=== PATIENT | female | born 1975 | race Caucasian/White ===

== ENCOUNTER 2016-09-11 12:04 | Emergency (ER) | payer OTHER ==
[~2016-09-11] VITALS: Ht 154.9 cm; Wt 68.0 kg
[~2016-09-11 12:04] MED LIST: ALPR2TAB1 PO; CARI350T PO; DOCU-67 PO; GABA300C PO; HYDR-4452 PO; IBUP-974 PO; OMEP40EC1 PO
[2016-09-11 12:11] VITALS: BP 121/77
--- NOTE | 2016-09-11 12:23 | NUR ---
pt to bed 3
--- NOTE | 2016-09-11 12:25 | NUR ---
PATIENT PRESENTS TO ED WITH C/O N/V/D STARTING AT 0300 TODAY WITH BODY ACHES; SKIN IS PINK/WARM/DRY; AAOX4 WITH EVEN AND STEADY GAIT; LUNGS CLEAR BL; HR EVEN AND REGULAR; PT DENIES ANY FEVER, CP, SOB, OR COUGH AT THIS TIME; PATIENT STATES PAIN OF 8/10 AT THIS TIME; VSS; PATIENT POSITIONED FOR COMFORT; HOB ELEVATED; BEDRAILS UP X2; BED DOWN. ER MD MADE AWARE OF PT STATUS.
--- NOTE | 2016-09-11 12:36 | NUR ---
Dr. Spence evaluating patient at bedside.
[2016-09-11] MEDS: KETOROLAC 60 MG/2 ML VIAL IM ONE (12:47)
[2016-09-11 13:01] VITALS: BP 106/69
--- NOTE | 2016-09-11 13:01 | NUR ---
Patient discharged with v/s stable. Written and verbal after care instructions given and explained. Patient alert, oriented and verbalized understanding of instructions. Ambulatory with steady gait. All questions addressed prior to discharge. ID band removed. Patient advised to follow up with PMD. Rx of IMODIUM, ZOFRAN, MOTRIN given. Patient educated on indication of medication including possible reaction and side effects. Opportunity to ask questions provided and answered.
== END 2016-09-11 13:01 | disposition home or self-care (01) ==
LOC: MED 12:04
DX: R11.2 Nausea with vomiting, unspecified (principal); R10.9 Unspecified abdominal pain; R19.7 Diarrhea, unspecified; K21.9 Gastro-esophageal reflux disease without esophagitis
CPT/HCPCS: 81002; 81025; 96372; 99283; J1885

== ENCOUNTER 2016-10-05 08:58 | Emergency (ER) | payer OTHER ==
[~2016-10-05] VITALS: Ht 160 cm; Wt 71.8 kg
[~2016-10-05 08:58] MED LIST changes: -ALPR2TAB1 PO; -CARI350T PO; +COLACE100 M1 PO; -DOCU-67 PO; -GABA300C PO; -HYDR-4452 PO; -IBUP-974 PO; +MOTRIN800 MG PO; +NEURONTIN300 MG PO; +NORCO 10/325 MG1 TAB PO; -OMEP40EC1 PO; +PHENERGAN25 M3 PO; +PRILOSEC40 MG PO; +SOMA350 MG PO; +XANAX2 MG PO
[2016-10-05 09:43] VITALS: BP 116/75
--- NOTE | 2016-10-05 10:04 | NUR ---
Patient back from XRAY.
--- NOTE | 2016-10-05 10:29 | NUR ---
Dr. Fontana evaluating patient.
--- NOTE | 2016-10-05 10:29 | NUR ---
Patient to OF2.
--- NOTE | 2016-10-05 10:58 | NUR ---
NO PAIN MED. GIVEN BY ERMD. PATIENT IN NO DISTRESS.PAIN NOT BAD PER PATIENT
--- NOTE | 2016-10-05 10:59 | NUR ---
LT. KNEE XR RESULTS REVIEWED BY DORIAN
[2016-10-05 11:00] VITALS: BP 110/78
== END 2016-10-05 11:00 | disposition home or self-care (01) ==
LOC: MED 08:58
DX: M25.562 Pain in left knee (principal); J45.909 Unspecified asthma, uncomplicated; K21.9 Gastro-esophageal reflux disease without esophagitis
CPT/HCPCS: 73562; 99284; Q0092

== ENCOUNTER 2016-11-16 09:18 | Emergency (ER) | payer OTHER ==
[~2016-11-16] VITALS: Ht 160 cm; Wt 71.3 kg
[~2016-11-16 09:18] MED LIST changes: +ALPR2TAB1 PO; +CARI350T PO; -COLACE100 M1 PO; +DOCU-67 PO; +GABA300C PO; +HYDR-4452 PO; +IBUP-974 PO; -MOTRIN800 MG PO; -NEURONTIN300 MG PO; -NORCO 10/325 MG1 TAB PO; +OMEP40EC1 PO; -PHENERGAN25 M3 PO; -PRILOSEC40 MG PO; -SOMA350 MG PO; -XANAX2 MG PO
[2016-11-16 09:28] VITALS: BP 126/81
--- NOTE | 2016-11-16 10:03 | NUR ---
Patient ambulated to bed 7. RN evaluating patient at bedside.
--- NOTE | 2016-11-16 10:08 | NUR ---
PATIENT PRESENTS TO ED WITH C/O NECK PAIN RADIATING BILAT UPPER EXTREMITIES , LEFT KNEE PAIN, LOWER BACK PAIN, AND HEADACHE EXACERBATION;HX OF HERNIATED DISC c3-c5, l4-5, s1;RX OF NORCO, NEUROTIN, ROBAXIN, XANAX,. DENIES N/V/D; SKIN IS PINK/WARM/DRY; AAOX4 WITH EVEN AND STEADY GAIT; LUNGS CLEAR BL; HR EVEN AND REGULAR; PT DENIES ANY FEVER, CP, SOB, OR COUGH AT THIS TIME; PATIENT STATES PAIN OF 8/10 AT THIS TIME; PATIENT POSITIONED FOR COMFORT; HOB ELEVATED; BEDRAILS UP X2; BED DOWN.
[2016-11-16] MEDS ORDERED: HYDROmorphone 1 MG/ML AMP IM ONE (10:10)
[2016-11-16] MEDS ORDERED: ONDANSETRON 4 MG/2 ML VIAL IM ONE (10:15)
--- NOTE | 2016-11-16 10:38 | NUR ---
Patient discharged with v/s stable. Written and verbal after care instructions given and explained. Patient alert, oriented and verbalized understanding of instructions. Ambulatory with steady gait. All questions addressed prior to discharge. ID band removed. Patient advised to follow up with PMD. Rx of ROBAXIN,NORCO AND zOFRAN given. Patient educated on indication of medication including possible reaction and side effects. Opportunity to ask questions provided and answered.
[2016-11-16 10:39] VITALS: BP 116/82
== END 2016-11-16 10:38 | disposition home or self-care (01) ==
LOC: MED 09:18
DX: M54.2 Cervicalgia (principal); K21.9 Gastro-esophageal reflux disease without esophagitis; M50.30 Other cervical disc degeneration, unspecified cervical region
CPT/HCPCS: 96372; 96374; 99284; J1170; J2405

== ENCOUNTER 2018-04-04 13:17 | Emergency (ER) | payer OTHER ==
[~2018-04-04] VITALS: Ht 154.9 cm; Wt 79.8 kg
[~2018-04-04 13:17] MED LIST changes: +ACET-787 PO; +DOCU-299 PO; -DOCU-67 PO; -HYDR-4452 PO
[2018-04-04 14:20] VITALS: BP 133/76
[2018-04-04] MEDS ORDERED: MORPHINE SULFATE 4 MG/ML SYR IM ONE (16:35)
[2018-04-04 17:11] VITALS: BP 133/76
== END 2018-04-04 17:05 | disposition home or self-care (01) ==
LOC: MED 13:17
DX: S16.1XXA Strain of muscle, fascia and tendon at neck level, initial encounter (principal); S39.012A Strain of muscle, fascia and tendon of lower back, initial encounter; S66.912A Strain of unspecified muscle, fascia and tendon at wrist and hand level, left hand, initial encounter; S96.911A Strain of unspecified muscle and tendon at ankle and foot level, right foot, initial encounter; S86.911A Strain of unspecified muscle(s) and tendon(s) at lower leg level, right leg, initial encounter; Z79.899 Other long term (current) drug therapy; Z79.1 Long term (current) use of non-steroidal anti-inflammatories (NSAID); V43.52XA Car driver injured in collision with other type car in traffic accident, initial encounter; Y93.I9 Activity, other involving external motion; Y92.488 Other paved roadways as the place of occurrence of the external cause; Y99.8 Other external cause status
CPT/HCPCS: 72040; 72100; 73100; 73562; 81002; 81025; 96372; 99283; J2270

== ENCOUNTER 2018-06-22 15:39 | Emergency (ER) | payer OTHER ==
[~2018-06-22] VITALS: Ht 154.9 cm; Wt 87.8 kg
[2018-06-22 15:50] VITALS: BP 135/84
--- NOTE | 2018-06-22 16:30 | NUR ---
PT WAITING IN LOBBY W/ VSS, NO NEW COMPLAINTS OR CHANGE IN CONDITION.
--- NOTE | 2018-06-22 18:30 | NUR ---
PT CALLED IN LOBBY WITH NO ANSWER, LWBS AT THIS TIME
== END 2018-06-22 18:30 | disposition left against medical advice (07) ==
LOC: MED 15:39
DX: M54.9 Dorsalgia, unspecified (principal); Z53.21 Procedure and treatment not carried out due to patient leaving prior to being seen by health care provider

== ENCOUNTER 2019-11-24 00:40 | Emergency (ER) | payer OTHER ==
[~2019-11-24] VITALS: Ht 154.9 cm; Wt 80.7 kg
[~2019-11-24 00:40] MED LIST changes: -ACET-787 PO; +HYDR-5191 PO; -OMEP40EC1 PO; +OMEP40EC24 PO
[2019-11-24 00:54] VITALS: BP 144/98
--- NOTE | 2019-11-24 01:00 | NUR ---
PT AMBULATED TP BED #8.
--- NOTE | 2019-11-24 01:00 | NUR ---
44 YO F BIB SELF FOR C/C OF 9 OLSON X1 DAY. PT STATES THE PAIN IN HER HEAD BEGINS IN THE FRONT OF HER HEAD AND RADIATES TO THE BACK OF HER HEAD AND DOWN HER LEFT ARM. PER PT SHE HAS MEDICATED HERSELF WITH NEURONTIN, TOPAMAX, 10MG OF NORCO, ROBAXIN, OMEPRAZOLE TODAY WITHOUT RELIEF OF SYMPTOMS. PT DENIES CHANGES TO HER VISION, OR HEARING. DENIES N/V/D, FEVER, COUGH, OR SOB. BED LOCKED AND IN LOWEST POSITION. SIDE RAILS X1. NKA MED HX: HERNIATED DISKS IN NECK RX:NEURONTIN, TOPAMAX, NORCO, ROBAXIN, OMEPRAZOLE
--- NOTE | 2019-11-24 01:04 | NUR ---
Simón stubbs in [facility] - 11/24/19 at 0105 by MARK PT TAKEN TO BED 8
[2019-11-24] MEDS ORDERED: PROCHLORPERAZINE 10 MG/2 ML VIAL IVP ONE (01:40)
[2019-11-24] MEDS ORDERED: KETOROLAC 15 MG/ML VIAL IVP ONE (01:40)
[2019-11-24] MEDS ORDERED: diphenhydrAMINE 50 MG/ML VIAL IVP ONE (01:40)
[2019-11-24] MEDS ORDERED: NACL 0.9% 1,000 ML IV ONE (01:40)
[2019-11-24] MEDS ORDERED: MAG SULF 2000 MG/WATER PREMIX 50 ML IV ONE (01:40)
[2019-11-24] MEDS ORDERED: DEXAMETHASONE 10 MG/ML VIAL IVP ONE (01:40)
--- NOTE | 2019-11-24 01:55 | NUR ---
PT AMBULATED TO RR TO PROVIDE URINE SAMPLE
--- NOTE | 2019-11-24 03:10 | NUR ---
Dr. Florez examining patient.
--- NOTE | 2019-11-24 03:30 | NUR ---
PT STATES HER 9/10 HEAD PAIN IS NOW 0/10 POST MED ADMINISTRATION
[2019-11-24 03:35] VITALS: BP 135/85
--- NOTE | 2019-11-24 03:35 | NUR ---
Patient discharged with v/s stable. Written and verbal after care instructions given and explained. Patient alert, oriented and verbalized understanding of instructions. Ambulatory with steady gait. All questions addressed prior to discharge. ID band removed. Patient advised to follow up with PMD. Rx of VITAMIN B12, MAGNESIUM GLUCONATE given. Patient educated on indication of medication including possible reaction and side effects. Opportunity to ask questions provided and answered.
== END 2019-11-24 03:35 | disposition home or self-care (01) ==
LOC: MED 00:40
DX: G43.719 Chronic migraine without aura, intractable, without status migrainosus (principal); I10 Essential (primary) hypertension; K21.9 Gastro-esophageal reflux disease without esophagitis; F41.9 Anxiety disorder, unspecified
CPT/HCPCS: 81002; 81025; 96365; 96375; 99284; J0780; J1100; J1200; J1885; J3475; J7030

== ENCOUNTER 2020-01-12 14:40 | Emergency (ER) | payer OTHER ==
[~2020-01-12] VITALS: Ht 154.9 cm; Wt 65.8 kg
[2020-01-12 14:45] VITALS: BP 161/99
--- NOTE | 2020-01-12 14:52 | NUR ---
Patient w/c assisted to bed 6.
--- NOTE | 2020-01-12 15:01 | NUR ---
44 y/o female from home c/o right sided "twitching" with repetitive speech since yesterday. Pt states she was seen by her neurologist "the other day" and unable to states why she was seen. Denies pain. Repeatedly stating "i am twitching". No facial asymmetry noted. Pt able to follow commands. RR even and unlabored, positioned for comfort.
--- NOTE | 2020-01-12 15:01 | NUR ---
Patient being evaluated by Dr. Lambert at bedside.
[2020-01-12] MEDS ORDERED: LORazepam 2 MG/ML VIAL IM ONE (15:20)
--- NOTE | 2020-01-12 15:30 | NUR ---
Pt ambulated to restroom, urine collected at this time
[2020-01-12 16:08] LABS: BARBITURATE, URINE NEGATIVE ng/ml (NEG <=200); BENZODIAZEPINE, URINE NEGATIVE ng/mL (NEG <=200); CANNABINOID, URINE NEGATIVE ng/mL (NEG <=50); COCAINE, URINE NEGATIVE ng/mL (NEG <=300); OPIATE, URINE POSITIVE ng/mL (NEG <=2000); PHENCYCLIDINE SCREEN,URINE NEGATIVE ng/mL (NEG <=25)
--- NOTE | 2020-01-12 16:15 | NUR ---
Resting with eyes closed, arousable to voice. Denies pain at this time. VSS
[2020-01-12 17:11] VITALS: BP 147/77
--- NOTE | 2020-01-12 17:11 | NUR ---
Patient discharged with v/s stable. Written and verbal after care instructions given and explained regarding tremors. Patient verbalized understanding. Ambulatory with steady gait. All questions addressed prior to discharge. Advised to follow up with neurologist
--- NOTE | 2020-01-12 17:11 | NUR ---
pt walked to [place] where son is waiting to drive pt home
== END 2020-01-12 17:11 | disposition home or self-care (01) ==
LOC: MED 14:40
DX: R25.1 Tremor, unspecified (principal); M54.2 Cervicalgia; Z79.899 Other long term (current) drug therapy
CPT/HCPCS: 80305; 81025; 96372; 99283; J2060